=== PATIENT | male | born 1945 | race Caucasian/White ===

== ENCOUNTER 2016-10-03 15:31 | Inpatient (IN) | payer MEDICARE, MEDICAID ==
[~2016-10-03] VITALS: Ht 165.1 cm; Wt 76.7 kg
[~2016-10-03 15:31] MED LIST: ADLT ASA LOW81 MG PO; ALBUTEROL90 MCG IN; ALDACTONE50 M1 OR; ATENOLOL50 MG OR; CALCITRIOL0.25 MC1 OR; CALCIUM + D600 MG OR; CALCIUM 600 +600 MG PO; CALCIUM/D250 MG PO; CALCIUM600 M1 OR; CALCIUM600 MG PO; CENTRUM OR; CENTRUM PO; CIPROFLOXACN500 MG PO; DUONEB IN; ESTRACE1 MG OR; ESTRACE2 M1 PO; ESTRADIOL0.1 MG TD; EXCEDRI1 OR; FINASTERIDE5 MG OR; FINASTERIDE5 MG PO; HYDROCHLORO25 MG/TAB PO; HYDROCHLOROT12.5 MG OR; HYDROCHLOROT25 MG PO; HYDROCHLOROT50 MG OR; KLOR-CON 88 MEQ OR; KLOR-CON 88 MEQ PO; LASIX 20 MG TAB20 MG PO; LO-DOSE ASA81 MG OR; LORTAB5 PO; MULTIVITAM10 OR; MYRBETRIQ25 MG PO; NAPROSYN500 MG PO; NITROFURANTN100 MG PO; PERCOCET 5/325M1 TAB PO; PREDNISONE10 MG PO; PREVACID15 M1 OR; PRILOSEC20 MG PO; PRILOSEC20 MG/CAP PO; PROAIR HFA IN; PROSCAR OR; PYRIDIUM200 MG OR; RISPERDAL1 MG OR; ROCALTROL0.25 MCG OR; SIMVASTATIN40 MG OR; SIMVASTATIN40 MG PO; SIMVASTATIN80 MG OR; SIMVASTATIN80 MG PO; SPIRONOLACT100 MG OR; SPIRONOLACT50 MG OR; TENORMIN OR; TENORMIN50 MG PO; TYLENOL325 M1 RE; TYLENOL500 MG PO; ULTRAM50 MG OR; VENTOLIN HF1 IN; VENTOLIN HFA IN; VITAMIN D-3400 UNIT PO
[2016-10-03 16:22] LABS: HEMATOCRIT 37.5 % (39.0-50.0); HEMOGLOBIN 12.3 g/dl (14.0-18.0); IMMATURE GRANULOCYTES 0.6 % (0.0-1.0); MEAN CELL VOLUME 87.6 fL CALC (80.0-100.0); MEAN CORPUSCULAR HGB 28.7 pG CALC (26.0-32.0); MEAN CORPUSCULAR HGB CONC 32.8 g/L CALC (32.0-36.0); NEUT# 13.46 thou/uL (1.82-7.42); RED BLOOD COUNT 4.28 mill/uL (4.70-6.10); RED CELL DISTRI WIDTH 14.8 % (11.5-15.5)
[2016-10-03 16:35] LABS: ALBUMIN 3.3 g/dL (3.2-5.0); ALKALINE PHOSPHATASE 129 u/l (38-126); ANION GAP 16 (6-22 (CALC)); BILIRUBIN, TOTAL 0.5 mg/dL (0.0-1.4); BUN 22 mg/dL (8-23); BUN/CREATININE RATIO 23 (12-20 (CALC)); CALCIUM 7.2 mg/dL (8.4-10.2); CARBON DIOXIDE 26 mmol/l (22-30); CHLORIDE 97 mmol/l (95-108); GFR > 60 ML/MIN (>=60 (CALC)); GFR FOR AFR.AMER. > 60 ML/MIN (>=60 (CALC)); GLUCOSE 109 mg/dL (82-115); POTASSIUM 4.1 mmol/l (3.5-5.1); SGOT/AST 28 u/l (19-48); SGPT/ALT 26 u/l (11-66); SODIUM 135 mmol/l (137-146); TOTAL PROTEIN 6.7 g/dL (6.3-8.2)
[2016-10-03 16:46] LABS: MYOGLOBIN 201 ng/mL (0 - 121)
[2016-10-03 16:54] LABS: URINE BILIRUBIN - DIPSTICK NEGATIVE (NEGATIVE); URINE BLOOD DIPSTICK LARGE (NEGATIVE); URINE CLARITY CLOUDY; URINE COLOR YELLOW; URINE GLUCOSE - DIPSTICK NEGATIVE (NEGATIVE); URINE KETONE NEGATIVE (NEGATIVE); URINE LEUK ESTERASE MODERATE (NEGATIVE); URINE NITRITE - DIPSTICK NEGATIVE (Negative); URINE PROTEIN - DIPSTICK 100 mg/dL (NEG-TRACE); URINE SPECIFIC GRAVITY >=1.030; URINE UROBILINOGEN - DIPSTICK 0.2 E.U./dL (0.2)
[2016-10-03 17:06] LABS: URINE WBC 50-100 WBC/hpf (0-5)
[2016-10-03] MEDS ORDERED: IPRATROPIU0.5 MG/3 M IN (17:13)
[2016-10-03] MEDS ORDERED: PROAIR HFA IN (17:14)
[2016-10-03] MEDS ORDERED: FINASTERIDE5 MG PO (17:14)
[2016-10-03 19:15] VITALS: BP 114/60
[2016-10-03 23:55] VITALS: BP 132/78
[2016-10-04 04:00] VITALS: BP 139/66
[2016-10-04 05:12] LABS: HEMATOCRIT 34.5 % (39.0-50.0); HEMOGLOBIN 11.2 g/dl (14.0-18.0); IMMATURE GRANULOCYTES 0.8 % (0.0-1.0); MEAN CORPUSCULAR HGB 28.6 pG CALC (26.0-32.0); MEAN CORPUSCULAR HGB CONC 32.5 g/L CALC (32.0-36.0); NEUT# 18.69 thou/uL (1.82-7.42); RED BLOOD COUNT 3.92 mill/uL (4.70-6.10); RED CELL DISTRI WIDTH 14.8 % (11.5-15.5)
[2016-10-04 05:41] LABS: ANION GAP 11 (6-22 (CALC)); BUN 20 mg/dL (8-23); BUN/CREATININE RATIO 22 (12-20 (CALC)); CALCIUM 6.3 mg/dL (8.4-10.2); CARBON DIOXIDE 24 mmol/l (22-30); CHLORIDE 100 mmol/l (95-108); CREATININE 0.9 mg/dL (0.7-1.3); GFR > 60 ML/MIN (>=60 (CALC)); GFR FOR AFR.AMER. > 60 ML/MIN (>=60 (CALC)); GLUCOSE 101 mg/dL (82-115); POTASSIUM 3.8 mmol/l (3.5-5.1); SODIUM 132 mmol/l (137-146)
[2016-10-04 08:15] VITALS: BP 122/61
[2016-10-04 12:30] VITALS: BP 121/66
[2016-10-04 16:28] VITALS: BP 113/67
[2016-10-04 18:55] VITALS: BP 116/67
[2016-10-04 23:40] VITALS: BP 130/76
[2016-10-05 03:35] VITALS: BP 141/77
[2016-10-05 06:38] LABS: HEMATOCRIT 32.2 % (39.0-50.0); HEMOGLOBIN 10.6 g/dl (14.0-18.0); MEAN CORPUSCULAR HGB CONC 32.9 g/L CALC (32.0-36.0); RED BLOOD COUNT 3.66 mill/uL (4.70-6.10)
[2016-10-05 07:04] LABS: ANION GAP 11 (6-22 (CALC)); BUN 15 mg/dL (8-23); BUN/CREATININE RATIO 18 (12-20 (CALC)); CALCIUM 6.2 mg/dL (8.4-10.2); CARBON DIOXIDE 24 mmol/l (22-30); CHLORIDE 99 mmol/l (95-108); CREATININE 0.9 mg/dL (0.7-1.3); GFR > 60 ML/MIN (>=60 (CALC)); GFR FOR AFR.AMER. > 60 ML/MIN (>=60 (CALC)); GLUCOSE 103 mg/dL (82-115); MAGNESIUM 2.1 mg/dL (1.6-2.3); POTASSIUM 3.8 mmol/l (3.5-5.1); SODIUM 129 mmol/l (137-146)
[2016-10-05 08:00] VITALS: BP 170/84
[2016-10-05 11:57] VITALS: BP 124/66
[2016-10-05 15:18] VITALS: BP 125/70
[2016-10-05 19:23] VITALS: BP 122/72
[2016-10-06 00:36] VITALS: BP 141/80
[2016-10-06 05:01] VITALS: BP 148/75
[2016-10-06 06:40] LABS: HEMATOCRIT 32.7 % (39.0-50.0); HEMOGLOBIN 10.7 g/dl (14.0-18.0); MEAN CELL VOLUME 86.7 fL CALC (80.0-100.0); MEAN CORPUSCULAR HGB 28.4 pG CALC (26.0-32.0); MEAN CORPUSCULAR HGB CONC 32.7 g/L CALC (32.0-36.0); RED BLOOD COUNT 3.77 mill/uL (4.70-6.10); RED CELL DISTRI WIDTH 14.6 % (11.5-15.5)
[2016-10-06 06:56] LABS: ALBUMIN 2.2 g/dL (3.2-5.0); BUN 17 mg/dL (8-23); CALCIUM 6.5 mg/dL (8.4-10.2); CARBON DIOXIDE 26 mmol/l (22-30); CHLORIDE 101 mmol/l (95-108); CREATININE 0.9 mg/dL (0.7-1.3); GFR > 60 ML/MIN (>=60 (CALC)); GFR FOR AFR.AMER. > 60 ML/MIN (>=60 (CALC)); GLUCOSE 95 mg/dL (82-115); POTASSIUM 3.7 mmol/l (3.5-5.1); SODIUM 135 mmol/l (137-146)
[2016-10-06 07:24] VITALS: BP 142/79
[2016-10-06 11:11] VITALS: BP 145/73
[2016-10-06] MEDS ORDERED: TAMSULOSIN HCL0.4 MG PO (12:29)
[2016-10-06] MEDS ORDERED: TENORMIN50 MG PO (12:30)
[2016-10-06] MEDS ORDERED: OXYCODONE/ACETA1 TA8 PO (12:30)
[2016-10-06] MEDS ORDERED: FINASTERIDE5 MG PO (12:31)
[2016-10-06] MEDS ORDERED: ALDACTONE25 MG PO (12:31)
[2016-10-06] MEDS ORDERED: LASIX 20 MG20 MG/TAB PO (12:31)
[2016-10-06] MEDS ORDERED: SLOW-MAG PO (12:32)
[2016-10-06] MEDS ORDERED: CALCIUM CARB500 MG PO (12:32)
[2016-10-06] MEDS ORDERED: VITAMIN D50000 UNIT PO (12:33)
[2016-10-06] MEDS ORDERED: AMOXICILLIN500 M2 PO (12:35)
[2016-10-06 15:06] VITALS: BP 132/72
== END 2016-10-06 16:00 | disposition home health service (06) | DRG 872 ==
LOC: ENPENDDIS → ED 15:31 → ED-I 15:46 → ED 17:20 → MS2 17:21
PROVIDERS: Emergency Medicine; Internal Medicine; ADMIT Internal Medicine; ATTEND Internal Medicine
DX: A41.9 Sepsis, unspecified organism (principal); E87.2 Acidosis; I27.0 Primary pulmonary hypertension; J44.9 Chronic obstructive pulmonary disease, unspecified; N13.8 Other obstructive and reflux uropathy; N39.0 Urinary tract infection, site not specified; M17.0 Bilateral primary osteoarthritis of knee; R32 Unspecified urinary incontinence; R15.9 Full incontinence of feces; J45.909 Unspecified asthma, uncomplicated; I10 Essential (primary) hypertension; F64.9 Gender identity disorder, unspecified; E83.51 Hypocalcemia; R53.81 Other malaise; B95.2 Enterococcus as the cause of diseases classified elsewhere; M16.0 Bilateral primary osteoarthritis of hip; N40.1 Benign prostatic hyperplasia with lower urinary tract symptoms; E55.9 Vitamin D deficiency, unspecified; R33.9 Retention of urine, unspecified; Z87.891 Personal history of nicotine dependence; Z87.440 Personal history of urinary (tract) infections
CPT/HCPCS: J0692; J2540; J3370

== ENCOUNTER 2017-03-26 12:55 | Inpatient (IN) | payer MEDICARE, MEDICAID ==
[~2017-03-26] VITALS: Ht 165.1 cm; Wt 75.7 kg
[~2017-03-26 12:55] MED LIST changes: +ALDACTONE25 MG PO; +AMOXICILLIN500 M2 PO; +CALCIUM CARB500 MG PO; +IPRATROPIU0.5 MG/3 M IN; +LASIX 20 MG20 MG/TAB PO; +OXYCODONE/ACETA1 TA8 PO; +SLOW-MAG PO; +TAMSULOSIN HCL0.4 MG PO; +VITAMIN D50000 UNIT PO
--- NOTE | 2017-03-26 13:10 | NUR ---
PT TO ROOM VIA WC ACCOMPANIED VOLUNTEER; MAX ASSIST TO BED; PT A/O X3; PT STATES UNABLE TO AMBULATE FOR ONE MONTH AND INCREASING PAIN TO RLE; SKIN INTACT; LUNGS CLEAR THROUGHOUT; 3+ PE TO BILAT LE; PT ORIENTED TO ROOM AND CALL SYSTEM; CALL EDWARDS WITHIN REACH; WILL CONTINUE TO MONITOR.
[2017-03-26 13:57] LABS: HEMATOCRIT 37.2 % (39.0-50.0); HEMOGLOBIN 12.1 g/dl (14.0-18.0); IMMATURE GRANULOCYTES 1.8 % (0.0-1.0); MEAN CELL VOLUME 92.1 fL CALC (80.0-100.0); MEAN CORPUSCULAR HGB CONC 32.5 g/L CALC (32.0-36.0); NEUT# 5.92 thou/uL (1.82-7.42); RED BLOOD COUNT 4.04 mill/uL (4.70-6.10)
[2017-03-26 14:07] LABS: ANION GAP 15 (6-22 (CALC)); BUN 29 mg/dL (8-23); BUN/CREATININE RATIO 35 (12-20 (CALC)); CALCIUM 7.4 mg/dL (8.4-10.2); CARBON DIOXIDE 30 mmol/l (22-30); CHLORIDE 99 mmol/l (95-108); CREATININE 0.8 mg/dL (0.7-1.3); GFR > 60 ML/MIN (>=60 (CALC)); GFR FOR AFR.AMER. > 60 ML/MIN (>=60 (CALC)); GLUCOSE 97 mg/dL (82-115); POTASSIUM 4.1 mmol/l (3.5-5.1); SODIUM 140 mmol/l (137-146)
[2017-03-26] MEDS ORDERED: PERCOCET 5/321 COMBO PO (14:12)
[2017-03-26] MEDS ORDERED: ATENOLOL25 MG PO (14:13)
[2017-03-26 14:17] VITALS: BP 135/65
[2017-03-26] MEDS ORDERED: MICRO-K8 ME1 PO (14:23)
--- NOTE | 2017-03-26 14:24 | NUR ---
COMPLETED DIRECT ADMIT MED REC FOR PT. PT WAS UNABLE TO VERIFY MEDS HE TOOK AND GAVE DESCRIPTORS LIKE "YELLOW PILL" AND "PAIN PILL THATS LIKE COCAINE". PTS PHARMACY IS [facility] IN [place], CALLED A REC'D LIST OF CURRENT MEDS AND UPDATED MED REC PER JESSICA RECORDS.
[2017-03-26 15:30] VITALS: BP 150/53
[2017-03-26 16:34] LABS: URINE BILIRUBIN - DIPSTICK NEGATIVE (NEGATIVE); URINE BLOOD DIPSTICK SMALL (NEGATIVE); URINE CLARITY SLIGHT CLOUDY; URINE COLOR YELLOW; URINE GLUCOSE - DIPSTICK NEGATIVE (NEGATIVE); URINE KETONE NEGATIVE (NEGATIVE); URINE PH 6.5 (4.5-8.0); URINE PROTEIN - DIPSTICK NEGATIVE (NEG-TRACE); URINE UROBILINOGEN - DIPSTICK 0.2 E.U./dL (0.2)
[2017-03-26 16:46] LABS: URINE BACTERIA MODERATE hpf; URINE LEUK ESTERASE MODERATE (NEGATIVE); URINE NITRITE - DIPSTICK POSITIVE (Negative); URINE SQUAMOUS EPITHELIAL CELL FEW EPI/hpf (0-FEW); URINE WBC 20-50 WBC/hpf (0-5)
--- NOTE | 2017-03-26 17:38 | NUR ---
DR. LAST IN TO SEE PT; PLAN OF CARE DISCUSSED
--- NOTE | 2017-03-26 19:00 | NUR ---
RADIOLOGY INTO ROOM TO COMPLETE XRAY
[2017-03-26 19:25] VITALS: BP 147/77
--- NOTE | 2017-03-26 20:00 | NUR ---
PT RESTING IN BED WATCHING TV. PT IS ALERT AND ORIENTED X3. PERRLA. RESP ARE EVEN AND UNLABORED. LUNGS ARE CLEAR. HR REGULAR. EDEMA NOTED TO RIGHT LOWER EXT. PULSES PALPABLE THROUGHOUT. BS ACTIVE. PT STATES THAT HE IS UNABLE TO MOVE RIGHT LOWER EXTREMITY FROM BENT POSITION. ASSISTED TO LOWER EXTTEMITY SOME. REPOSITIONED IN BED. PT STATES THAT HE IS HAVING PAIN. PT MEDICATIED FOR PAIN. #22 LEFT HAND. NO REDNESS OR EDEMA NOTED. WILL CONTINUE TO MONITOR.
[2017-03-27] VITALS: BP 145/64
--- NOTE | 2017-03-27 | NUR ---
PT CALLED AND STATED THAT HE NEEDED TO URINATE. PT WAS FOUND TO HAVE URINATED ON HIMSELF. PT GIVEN A COMPLETE BED BATH. LINENS CHANGED. PT PLACED ON LEFT SIDE. NO CHANGE IN PAT STATUS WILL CONTINUE TO MONITOR
--- NOTE | 2017-03-27 00:43 | NUR ---
PT CALLED AND STATED THAT HE WAS UNCOMFORTABLE. PT REPOSITIONED AND PLACED ON RIGHT SIDE. WILL CONTINUE TO MONITOR.
--- NOTE | 2017-03-27 04:26 | NUR ---
PT RESTING IN BED WITH EYES CLOSED. RESP ARE EVEN AND UNLABORED. NO DISTRESS NOTED. NO CHANGE IN PT STATUS. WILL CONTINUE TO MONITOR.
[2017-03-27 06:22] LABS: ALBUMIN 3.4 g/dL (3.2-5.0); ALKALINE PHOSPHATASE 72 u/l (38-126); ANION GAP 13 (6-22 (CALC)); BILIRUBIN, TOTAL 0.7 mg/dL (0.0-1.4); BUN 23 mg/dL (8-23); BUN/CREATININE RATIO 30 (12-20 (CALC)); CARBON DIOXIDE 29 mmol/l (22-30); CHLORIDE 101 mmol/l (95-108); CREATININE 0.8 mg/dL (0.7-1.3); GFR > 60 ML/MIN (>=60 (CALC)); GFR FOR AFR.AMER. > 60 ML/MIN (>=60 (CALC)); GLUCOSE 85 mg/dL (82-115); POTASSIUM 4.2 mmol/l (3.5-5.1); SGOT/AST 19 u/l (19-48); SGPT/ALT 30 u/l (11-66); SODIUM 138 mmol/l (137-146); TOTAL PROTEIN 6.2 g/dL (6.3-8.2)
[2017-03-27 06:26] VITALS: BP 150/69
[2017-03-27 08:15] VITALS: BP 159/79
--- NOTE | 2017-03-27 09:07 | NUR ---
DR. LAST IN TO SEE PT; PLAN OF CARE DISCUSSED; CONSULT FOR DR. PERES ORDERED; DR. LAST STATES HE WILL CONTACT THE MD
[2017-03-27 11:28] VITALS: BP 126/61
--- NOTE | 2017-03-27 14:20 | NUR ---
PT MEDICATED FOR C/O RT LEG PAIN 12/02; PT INCONTINENT; LENO CARE PROVIDED AND PT REPOSITIONED; CALL EDWARDS WITHIN REACH; WILL CONTINUE TO MONITOR.
[2017-03-27 16:00] VITALS: BP 119/63
--- NOTE | 2017-03-27 16:46 | NUR ---
PT WAS SEEN SUPINE ON BED WITH HOB ELEVATED. STATES THAT HIS R LEG PAIN WAS PS 9-10/10. REQUESTED PHYSICAL THERAPY EVALUATION TO BE DONE TOMORROW.
--- NOTE | 2017-03-27 16:50 | NUR ---
PT MEDICATED FOR C/O LEG PAIN 02/02; PT REFUSE PHYSICAL THERAPY; PT REPOSITIONED AT THIS TIME; CALL EDWARDS WITHIN REACH; WILL CONTINUE TO MONITOR.
[2017-03-27 18:48] VITALS: BP 119/67
--- NOTE | 2017-03-27 20:15 | NUR ---
PT SITTING UP IN BED WATCHING TV. PT IS ALERT AND ORIENTED X3. PERRLA. RESP ARE EVEN AND UNLABOTED. LUNGS ARE CLEAR. HR REGULAR. PULSES PALABLE THROUGHOUT. EDEMA TO RIGHT LOWER EXTREMITY. RLE PT STATES THAT HE CANNOT MOVE AND IS CONTRACTED. BS ACTIVE. PT INCONITNENT OF URINE AT TIMES. ENCOURAGED PT TO TURN [id number]. #22 LEFT HAND. WILL CONTINUE TO MONITOR.
--- NOTE | 2017-03-28 00:47 | NUR ---
PT RESTING IN BED WITH EYES CLOSED. RESP ARE EVEN AND UNLABORED. NO DISTRESS NOTED. NO CHANGE IN PT STATUS. WILL CONTINUE TO MONITOR
--- NOTE | 2017-03-28 04:00 | NUR ---
PT RESTING IN BED WITH EYES CLOSED. RESP ARE EVEN AND UNLABORED. NO DISTRESS NOTED. NO CHANGE IN PT STATUS. WILL CONTINUE TO MONITOR.
--- NOTE | 2017-03-28 07:40 | NUR ---
PT C/O RT LEG PAIN 10/10; MEDICATED ORDERED; PT INCONTINENT OF MODERATE AMOUNT OF URINE; LENO CARE PROVIDED; PT ASSISTED WITH BREAKFAST SET UP; CALL EDWARDS WITHIN REACH; WILL CONTINUE TO MONITOR.
[2017-03-28 07:45] VITALS: BP 146/79
--- NOTE | 2017-03-28 08:48 | NUR ---
ATTEMPTED TO DO PHYSICAL THERAPY ASSESSMENT, HOWEVER, PT REFUSED TO BE MOVED OOB DUE TO STATED COMPLAINT OF EXCRUCIATING PAIN ON R HIP. LE ROM CANNOT BE OBTAINED AT THIS TIME. PT PRESENTED HYPERSENSITIVITY OF R LE WITH LIGHT TOUCH AND YELLED OF PAIN WHEN ATTEMPTED TO TAKE THE SHEET OFF.
--- NOTE | 2017-03-28 09:03 | NUR ---
DR. LAST IN TO SEE PT; PLAN OF CARE DISCUSSED
--- NOTE | 2017-03-28 14:00 | NUR ---
PHYSICAL THERAPY IN WITH PT
[2017-03-28 15:42] VITALS: BP 152/62
--- NOTE | 2017-03-28 16:15 | NUR ---
PT IS RELAXING IN BED WITH NO DISTRESS NOTEDL IV SITE IS FREE FROM REDNESS OR EDEMA.
[2017-03-28 19:45] VITALS: BP 112/77; BP 164/75
--- NOTE | 2017-03-28 20:06 | NUR ---
PT CALLING FOR ASSISTANCE TO HELP REPOSITION IN BED. A/O X3, POOR MOVEMENT TO RIGHT LEG, ABLE TO REPOSITION, BUT IS NOT ABLE TO STRAIGHTEN IT OUT, HEEL PROTECTORS IN PLACE, PILLOW BETWEEM KNEES. MEDICATED WITH PERCOCET FOR C/O RIGHT LEG PAIN 01/02. RESPIRATIONS EVEN AND UNLABORED. CALL LIGHT IN REACH. URINAL OFFERED PT STATES, HE IS INCONTINENT.
--- NOTE | 2017-03-29 01:47 | NUR ---
COMPLETE BED BATH PROVIDED, TOLERATED WELL, C/O TO RIGHT LEG 8/10 DUE TO TURNING DURING BATH, MEDICATED WITH DILAUDID 1MG IV. CALL LIGHT IN REACH, WILL CONTINUE TO MONITOR.
[2017-03-29 05:04] VITALS: BP 143/61
--- NOTE | 2017-03-29 06:00 | NUR ---
DR. LAST IN TO SEE PT, NO NEW ORDER RECEIVED.
--- NOTE | 2017-03-29 07:00 | NUR ---
SHIFT CHANGE REPORT FROM [facility], PT AWAKE AND ALERT RESTING IN BED, C/O R. LEG PAIN, LEG CONTRACTED, PT REPOSITIONED AND PILLOW PLACED BETWEEN LEGS FOR FRICTION PREVENTIION, ALL NEEDS ADDRESSED, CALL EDWARDS IN REACH.
[2017-03-29 08:47] VITALS: BP 137/77
--- NOTE | 2017-03-29 12:00 | NUR ---
ATE MEAL, REPOSITIONED IN BED, C/O R. LEG PAIN, CONCERN ADDRESSED, CALL EDWARDS IN REACH.
[2017-03-29] MEDS ORDERED: MERREM1 GM IV (14:29)
[2017-03-29 15:34] VITALS: BP 123/69
--- NOTE | 2017-03-29 16:21 | NUR ---
Discharge instructions given. Patient verbalizes understanding of same. Discharged in stable condition via Wheelchair to *Other with *Other. All belongings sent with pt. D/C TO [facility] IN [place].
== END 2017-03-29 16:18 | DRG 565 ==
LOC: MS2 12:55
PROVIDERS: ADMIT Internal Medicine Geriatric Medicine; ATTEND Internal Medicine Geriatric Medicine
DX: M24.451 Recurrent dislocation, right hip (principal); N39.0 Urinary tract infection, site not specified; E87.8 Other disorders of electrolyte and fluid balance, not elsewhere classified; J44.9 Chronic obstructive pulmonary disease, unspecified; N13.8 Other obstructive and reflux uropathy; M15.0 Primary generalized (osteo)arthritis; E83.51 Hypocalcemia; M24.551 Contracture, right hip; M24.561 Contracture, right knee; E55.9 Vitamin D deficiency, unspecified; I10 Essential (primary) hypertension; E78.5 Hyperlipidemia, unspecified; N40.1 Benign prostatic hyperplasia with lower urinary tract symptoms; B96.20 Unspecified Escherichia coli [E. coli] as the cause of diseases classified elsewhere; Z16.12 Extended spectrum beta lactamase (ESBL) resistance; Z99.3 Dependence on wheelchair